=== PATIENT | female | born 1970 | race Caucasian/White ===

== ENCOUNTER 2018-04-09 15:51 | Emergency (ER) | payer BC ==
[2018-04-09 16:04] VITALS: BP 121/80
--- NOTE | 2018-04-09 17:45 | EDM.PDOC ---
ED HPI GENERAL MEDICAL PROBLEM - General Chief Complaint: Upper Extremity Injury/Pain Stated Complaint: BLOOD IN CAST ON RT ARM Time Seen by Provider: 04/09/18 16:15 Source of Information: Reports: Patient History Limitations: Reports: No Limitations - History of Present Illness INITIAL COMMENTS - FREE TEXT/NARRATIVE: 47-year-old female presents for evaluation and treatment of occasions from her cast. Patient reports last week she fell. Symptoms as if she fell onto an outstretched hand. She was seen at the [facility]. Had x-rays done and was diagnosed with a distal radial fracture. She was initially splinted and was has since followed up with Dr. Flannery. She was casted this week. She states that since having the She Has Been "Pulling Blood Out Of the Cast ". She Has an Abrasion, Some Road Rash, to the Palm of Her Hand. Feels This Is Possibly the cause of the Bleeding. She Reports a Bad Smell and Drainage from the Cast. Patient also reports that her fingers tips were blue earlier. No Fevers, Chills , Nausea or Vomiting. She has been given tramadol for pain which she does not feels adequate. - Related Data Allergies Allergy/AdvReac Type Severity Reaction Status Date / Time gluten Allergy Other Verified 04/09/18 16:17 Home Meds: Home Meds Cholecalciferol (Vitamin D3) [Vitamin D3] 5,000 unit PO DAILY 09/09/14 [History] Collagen/Elastin 1 tab PO DAILY 09/09/14 [History] Insulin Glulisine [Apidra] 40 units SQ DAILY 09/09/14 [History] Multivitamin [Daily Vitamin] 1 each PO DAILY 09/09/14 [History] metFORMIN [Glucophage] 500 mg PO BIDM 09/09/14 [History] Sertraline [Zoloft] 100 mg PO DAILY 01/06/15 [History] Cyanocobalamin (Vitamin B-12) [Vitamin B-12] 1,000 mcg PO DAILY 04/09/18 [ History] Cyclobenzaprine [Flexeril] 5 mg PO TID PRN 04/09/18 [History] LORazepam 0.5 mg PO DAILY PRN 04/09/18 [History] Lisinopril 2.5 mg PO DAILY 04/09/18 [History] Loteprednol Etabonate [Alrex] 1 drop EYEBOTH QID PRN 04/09/18 [History] Omeprazole 40 mg PO DAILY 04/09/18 [History] Ondansetron [Zofran ODT] 4 mg PO Q4H PRN 04/09/18 [History] Simvastatin [Zocor] 10 mg PO BEDTIME 04/09/18 [History] busPIRone HCl [Buspirone HCl] 7.5 mg PO BID 04/09/18 [History] traMADol [Ultram] 50 mg PO Q4HR PRN 04/09/18 [History] Past Medical History Gastrointestinal History: Reports: Celiac Disease Endocrine/Metabolic History: Reports: Diabetes, Type II Social & Family History - Caffeine Use Caffeine Use: Reports: Coffee - Recreational Drug Use Recreational Drug Use: No - Living Situation & Occupation Living situation: Reports: Review of Systems - Review of Systems Review Of Systems: See Below Constitutional: Denies: Chills, Fever Musculoskeletal: Reports: Arm Pain (right arm; reports blood from cast, pain to distal forearm and hand, drainage and a foul smell from the cast) ED EXAM, GENERAL - Physical Exam Exam: See Below Exam Limited By: No Limitations General Appearance: Alert, WD/WN, No Apparent Distress Respiratory/Chest: No Respiratory Distress Cardiovascular: Normal Peripheral Pulses, Regular Rate, Rhythm Peripheral Pulses: 2+: Radial (L), Radial (R) Extremities: Normal Inspection, Non-Tender, Normal Capillary Refill, Joint Swelling (right wrist), Limited Range of Motion (ROM testing deferred), Other ( pallor and macerated tissue at the right thenar crease , no broken skin, no obvious infection, no erythema or drainge ). No: Increased Warmth Neurological: Alert, Oriented, Normal Cognition Psychiatric: Normal Affect, Normal Mood Skin Exam: Warm, Dry, Other (small 2-3 mm superficial puncture wound to the right ventral hand ulnar side) ED TRAUMA EXTREMITY PROCEDURES - Splinting Right Upper Extremity Splint Site: right wirst and forearm Pre-Procedure NV Status: Normal Post-Procedure NV Status: Normal Splint Material: Sling, Other (orthoglass) Splint Design: Thumb Spica Applied & Form Fitted By: Provider Provider Post-Splint Application NV Check: NV Status Normal, Good Position Complications: No Course - Vital Signs Last Recorded V/S: Last Vital Signs Temp 97.3 F 04/09/18 15:58 Pulse 100 04/09/18 15:58 Resp 16 04/09/18 15:58 BP 121/80 04/09/18 15:58 Pulse Ox 95 04/09/18 15:58 - Orders/Labs/Meds Orders: Active Orders 24 hr Category Date Time Status Wrist Comp Min 3V Rt [CR] Stat Exams 04/09/18 16:33 Taken - Radiology Interpretation Free Text/Narrative:: xray of the right wrist shows a right distal radius fracture - Re-Assessments/Exams Free Text/Narrative Re-Assessment/Exam: 04/09/18 17:39 Decision was made to remove the catheter to inspect the skin. Upon removal of the catheter patient reports immediate pain relief. The cast was removed and it was appreciated that she had pa and slightly macerated skin to the right thenar crease. She had a puncture size wound to the right palm on the ulnar side. No associated erythema, swelling or pus. I reviewed the x-ray results with the patient. She has a fracture of her distal radius. No other fractures appreciated. Patient splinted as she continues to have a fair amount of swelling. Given a sling due to the swelling. Discharge instructions as documented. Departure - Departure Time of Disposition: 17:43 Disposition: Home, Self-Care 01 Condition: Fair Clinical Impression: Distal radius fracture, right - Discharge Information Instructions: Radial Fracture Referrals: Devorah Womack NP [Primary Care Provider] - Forms: ED Department Discharge Additional Instructions: [id number] Tylenol or Motrin as needed for pain relief. May also take the tramadol that you have at home as needed for pain relief. Elevate the arm, above the level of the heart, as much as possile. May wear the sling for comfort and to also assist with elevation. Ice the area, even over the splint 4 or 5 times a day for 20-30 minutes. Follow-up with orthopedics within 2 weeks for a recheck and have this recasted. Please return the ER if your symptoms change or worsen. - My Orders Last 24 Hours: My Active Orders 04/09/18 16:33 Wrist Comp Min 3V Rt [CR] Stat - Assessment/Plan Last 24 Hours: My Active Orders 04/09/18 16:33 Wrist Comp Min 3V Rt [CR] Stat
--- NOTE | 2018-04-10 08:46 | CR ---
Right wrist: Four views of the right wrist were obtained. Comparison: No prior wrist exam. Bony structures are osteopenic. This appears somewhat unusual for the patient's age. Fracture line is seen within the distal radius in a longitudinal orientation. No displacement is seen. No additional fracture or other abnormality is seen. Impression: 1. Nondisplaced longitudinal fracture within the distal right radius. 2. Osteopenia which appears more prominent than usual seen for the patient's age. If etiology is unknown, recommend DEXA study. Diagnostic code #3
== END 2018-04-09 18:16 | disposition home or self-care (01) ==
LOC: JD.ED 15:51
DX: S52.501A Unspecified fracture of the lower end of right radius, initial encounter for closed fracture (principal); E11.9 Type 2 diabetes mellitus without complications; Z91.018 Allergy to other foods; Z79.4 Long term (current) use of insulin; Z79.899 Other long term (current) drug therapy; X50.9XXA Other and unspecified overexertion or strenuous movements or postures, initial encounter
CPT/HCPCS: 29125; 73110-26-RT; 73110-RT; 99282-25; 99283